=== PATIENT | male | born 1985 | race Caucasian/White ===

== ENCOUNTER 2016-11-06 04:21 | Emergency (ER) | payer OTHER ==
[~2016-11-06] VITALS: Ht 185.4 cm; Wt 90.7 kg
[2016-11-06] MEDS ORDERED: FENTANYL PF 100 MCG/2 ML VIAL. IV ONE (04:45)
[2016-11-06 04:53] LABS: BASO % 0 % (0-3); EOS % 0 % (0-3); HEMATOCRIT 48.2 % (39.0-53.0); HEMOGLOBIN 16.1 g/dL (13.0-17.5); LYMPH # 2.2 x10^3/uL (1.0-4.8); LYMPH % 16 % (24-48); MEAN CORPUSCULAR HEMOGLOBIN 28 pg (25-35); MEAN CORPUSCULAR HGB CONC 34 g/dL (31-37); MEAN CORPUSCULAR VOLUME 83 fL (79-100); MONO % 6 % (0-9); NEUT % 77 % (31-73); PLATELET COUNT 236 x10^3/uL (140-400); RED BLOOD COUNT 5.79 x10^6/uL (4.30-5.70); RED CELL DISTRIBUTION WIDTH 13.3 % (11.5-14.5); WHITE BLOOD COUNT 13.5 x10^3/uL (4.0-11.0)
[2016-11-06 05:02] LABS: CALCIUM 9.5 mg/dL (8.5-10.1); GFR 87.2; POTASSIUM 4.3 mmol/L (3.5-5.1)
[2016-11-06 05:08] LABS: ALBUMIN 4.2 g/dL (3.4-5.0); TOTAL BILIRUBIN 0.4 mg/dL (0.2-1.0); TOTAL PROTEIN 8.4 g/dL (6.4-8.2)
--- NOTE | 2016-11-06 05:43 | PHYS DOC ---
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 Patient states he was seen in clinic and was given antiacids without relief. He does state he has significant drug use history and was told he had mild congestive heart failure in the past but denies any difficulty of problems currently. He denies taking any medications. His pain a 9 out of 10 on the pain scale localized primarily to the epigastrium and right upper quadrant. He does state he had mild nausea but this has resolved. He denies any vomiting. He denies any fever or chills. Review of Systems Review of Systems Constitutional: Denies fever or chills [] Eyes: Denies change in visual acuity, redness, or eye pain [] HENT: Denies nasal congestion or sore throat [] Respiratory: Denies cough or shortness of breath [] Cardiovascular: No additional information not addressed in HPI [] GI: Has abdominal pain, has nausea,has vomiting, denies bloody stools or diarrhea [] : Denies dysuria or hematuria [] Musculoskeletal: Denies back pain or joint pain [] Integument: Denies rash or skin lesions [] Neurologic: Denies headache, focal weakness or sensory changes [] Endocrine: Denies polyuria or polydipsia [] Current Medications Current Medications Current Medications Medications (Trade) Dose Ordered Sig/[facility] Start Time Stop Time Status Last Admin Dose Admin Fentanyl Citrate (Fentanyl 2ml Vial) 50 mcg 1X ONCE 11/06/16 04:45 11/06/16 04:49 DC 11/06/16 04:48 50 MCG Allergies Allergies Allergies Coded Allergies Type Severity Reaction Last Updated Verified No Known Drug Allergies 11/06/16 No Physical Exam Physical Exam Constitutional: Well developed, well nourished, no acute distress, non-toxic appearance. [] HENT: Normocephalic, atraumatic, bilateral external ears normal, oropharynx moist, no oral exudates, nose normal. [] Eyes: PERRLA, EOMI, conjunctiva normal, no discharge. [] Neck: Normal range of motion, no tenderness, supple, no stridor. [] Cardiovascular:Heart rate regular rhythm, no murmur [] Lungs & Thorax: Bilateral breath sounds clear to auscultation [] Abdomen: Bowel sounds normal, soft, RUQ and epigastrium tenderness, no masses, no pulsatile masses. [] Skin: Warm, dry, no erythema, no rash. [] Back: No tenderness, no CVA tenderness. [] Extremities: No tenderness, no cyanosis, no clubbing, ROM intact, no edema. [] Neurologic: Alert and oriented X 3, normal motor function, normal sensory function, no focal deficits noted. [] Psychologic: Affect normal, judgement normal, mood normal. [] Current Patient Data Vital Signs Vital Signs Date Time Temp Pulse Resp B/P Pulse Ox O2 Delivery O2 Flow Rate FiO2 11/06/16 06:00 50 16 150/71 100 Room Air 11/06/16 04:37 97.5 97.5 Lab Values Laboratory Tests Test 11/06/16 04:34 White Blood Count 13.5x10^3/uL (4.0-11.0) H Red Blood Count 5.79x10^6/uL (4.30-5.70) H Hemoglobin 16.1g/dL (13.0-17.5) Hematocrit 48.2% (39.0-53.0) Mean Corpuscular Volume 83fL (79-100) Mean Corpuscular Hemoglobin 28pg (25-35) Mean Corpuscular Hemoglobin Concent 34g/dL (31-37) Red Cell Distribution Width 13.3% (11.5-14.5) Platelet Count 236x10^3/uL (140-400) Neutrophils (%) (Auto) 77% (31-73) H Lymphocytes (%) (Auto) 16% (24-48) L Monocytes (%) (Auto) 6% (0-9) Eosinophils (%) (Auto) 0% (0-3) Basophils (%) (Auto) 0% (0-3) Neutrophils # (Auto) 10.4x10^3uL (1.8-7.7) H Lymphocytes # (Auto) 2.2x10^3/uL (1.0-4.8) Monocytes # (Auto) 0.8x10^3/uL (0.0-1.1) Eosinophils # (Auto) 0.0x10^3/uL (0.0-0.7) Basophils # (Auto) 0.0x10^3/uL (0.0-0.2) Sodium Level 142mmol/L (136-145) Potassium Level 4.3mmol/L (3.5-5.1) Chloride Level 104mmol/L (98-107) Carbon Dioxide Level 31mmol/L (21-32) Anion Gap 7 (6-14) Blood Urea Nitrogen 16mg/dL (8-26) Creatinine 1.0mg/dL (0.7-1.3) Estimated GFR (Cockcroft-Gault) 87.2 BUN/Creatinine Ratio 16 (6-20) Glucose Level 98mg/dL (70-99) Calcium Level 9.5mg/dL (8.5-10.1) Total Bilirubin 0.4mg/dL (0.2-1.0) Aspartate Amino Transferase (AST) 23U/L (15-37) Alanine Aminotransferase (ALT) 38U/L (16-63) Alkaline Phosphatase 102U/L (46-116) Troponin I Quantitative < 0.017ng/mL (0.000-0.055) Total Protein 8.4g/dL (6.4-8.2) H Albumin 4.2g/dL (3.4-5.0) Albumin/Globulin Ratio 1.0 (1.0-1.7) Lipase 146U/L (73-393) Laboratory Tests 11/06/16 04:34 Laboratory Tests 11/06/16 04:34 EKG EKG EKG as interpreted by me shows a sinus rhythm with rate of 56 bpm. There are no acute ST findings otherwise. This is a nonischemic EKG. Intervals are normal. EKG does not meet STEMI criteria. Radiology/Procedures Radiology/Procedures One view of the chest as interpreted by me does not reveal an acute cardiopulmonary process. Course & Med Decision Making Course & Med Decision Making Pertinent Labs and Imaging studies reviewed. (See chart for details) This 31-year-old male who's having significant right upper quadrant and epigastrium pain on my exam will have full laboratory workup and a shunt his abdomen for rule out any other pathology. His laboratory workup at this time is fairly unremarkable aside slightly elevated white count. His EKG, chest x-ray and cardiac enzymes are unrevealing. If his ultrasound is normal, I will be recommending close follow-up his primary care doctor for symptom resolution. Dragon Disclaimer Dragon Disclaimer This electronic medical record was generated, in whole or in part, using a voice recognition dictation system. Departure Departure Impression: Primary Impression: Symptomatic cholelithiasis Disposition: HOME, SELF-CARE Admitting Physician: Other Condition: STABLE Referrals: NO PCP (PCP) Patient Instructions: Cholelithiasis, [id number] Additional Instructions: Please avoid eating any fried or fatty meals for the next several days and follow closely with the primary care doctor and a surgeon for your gallstones in the next 2-3 days. Take your pain medication as needed. Return to the ER if you develop any worsening symptoms. Return to ER if you develop any fever or chills or nausea. Scripts Ondansetron Hcl (Zofran)4 Mg Tablet4 Mg PO BID PRN NAUSEA/VOMITING #10 TAB Prov:SEGUNDO CROFT DO 11/06/16 Hydrocodone/Apap 5-325 ([place] 5-325 Tablet)1 Each Tablet1 Tab PO PRN Q6HRS PRN PAIN #10 TAB Prov:SEGUNDO CROFT DO 11/06/16 SEGUNDO CROFT DO Nov 06, 2016 05:43
[2016-11-06 06:00] VITALS: BP 150/71
--- NOTE | 2016-11-06 06:15 | RAD ---
Ultrasound abdomen limited Indication: Right upper quadrant pain. The liver demonstrates increased echogenicity consistent with fatty infiltration. No discrete liver mass is detected. There are multiple gallstones present. There is a stone within the gallbladder neck. No gallbladder wall thickening is detected. No pericholecystic fluid or biliary ductal dilatation is seen. The right kidney is unremarkable. The pancreas was poorly visualized. Impression: Cholelithiasis and fatty infiltration of the liver. No acute cholecystitis is detected. Electronically signed by: Prashant Sultana MD (Nov 06, 2016 06:14:32)
[2016-11-06] MEDS ORDERED: HYDR-971 PO (06:22)
[2016-11-06] MEDS ORDERED: ONDA4TAB7 PO (06:22)
--- NOTE | 2016-11-06 06:39 | EKG ---
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
--- NOTE | 2016-11-06 07:15 | RAD ---
Portable chest, 11/06/2016: History: Chest pain, asthma The heart size and pulmonary vascularity are normal. The lungs are clear. There is no evidence of pleural fluid. IMPRESSION: No acute cardiopulmonary abnormality is detected.
== END 2016-11-06 06:30 | disposition home or self-care (01) ==
LOC: ER 04:21 → EEVIPCON 04:21 → ER 06:30
DX: K80.20 Calculus of gallbladder without cholecystitis without obstruction (principal); J45.909 Unspecified asthma, uncomplicated; I50.9 Heart failure, unspecified; K21.9 Gastro-esophageal reflux disease without esophagitis; F12.10 Cannabis abuse, uncomplicated; F15.10 Other stimulant abuse, uncomplicated
CPT/HCPCS: 36415; 71010; 76705; 80053; 83690; 84484; 85027; 93005; 96374; 99285; J3010